=== PATIENT | female | born 2000 | race African-American/Black ===

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

== ENCOUNTER 2022-08-26 19:25 | Emergency (ER) | payer SELFPAY ==
[2022-08-26 19:34] VITALS: BP 109/75; PULSE 90; RESP 18; TEMP 98.5; BMI 35.4
[2022-08-26] MEDS ORDERED: DIPHTH,PERTUSS(ACELL),TET 0.5 ML DISP.SYRIN IM ONE ×2 (20:09→20:16)
[2022-08-26] MEDS ORDERED: ACETAMINOPHEN 500 MG TABLET (FP) PO ONE (20:09)
[2022-08-26] MEDS ORDERED: ACETAMINOPHEN 500 MG TABLET (FP) ONE (20:16)
== END 2022-08-26 22:56 | disposition home or self-care (01) ==
LOC: JER 19:25 → JERFT 19:25
PROC: 0HQLXZZ Repair Left Lower Leg Skin, External Approach (ICD-10-PCS; principal; 2022-08-26)
PROC: 3E0234Z Introduction of Serum, Toxoid and Vaccine into Muscle, Percutaneous Approach (ICD-10-PCS; 2022-08-26)
DX: S81.812A Laceration without foreign body, left lower leg, initial encounter (principal); Y99.9 Unspecified external cause status
CPT/HCPCS: 84703; 90715; 99284-25

== ENCOUNTER 2023-07-26 08:43 | Emergency (ER) | payer OTHER ==
[2023-07-26 08:50] VITALS: BP 116/53; PULSE 98; RESP 18; TEMP 98.2; BMI 35.4
[2023-07-26 10:26] LABS: BASO % 0.3 % (0-2.0); EOS % 1.4 % (0-4.5); HEMATOCRIT 37.9 % (32.4-45.2); HEMOGLOBIN 12.7 GM/dL (10.7-15.3); LYMPH % 15.9 % (8-40); MCH 29.4 pg (25.7-33.7); MCHC 33.7 g/dl (32.0-36.0); MEAN CELL VOLUME 87.4 fl (80-96); MEAN PLT VOLUME 8.1 fl (7.5-11.1); MONO % 5.7 % (3.8-10.2); NEUT % 76.7 % (42.8-82.8); PLATELET COUNT 256 10^3/uL (134-434); RBC 4.33 M/mm3 (3.60-5.2); RDW 13.4 % (11.6-15.6); WHITE BLOOD COUNT 12.5 K/mm3 (4.0-10.0)
[2023-07-26 10:31] LABS: INR 0.99 (0.83-1.09); PROTHROMBIN TIME (PATIENT) 11.5 SEC (9.7-13.0)
[2023-07-26 10:32] LABS: EPI CELLS 17 /uL (0-25.1); HYALINE CASTS 0 /uL (0-3.1); URINE APPEARANCE CLOUDY; URINE BACTERIA 532 /uL (0-1359); URINE BILIRUBIN NEGATIVE (NEGATIVE); URINE COLOR YELLOW; URINE GLUCOSE (UA) NEGATIVE (NEGATIVE); URINE KETONE NEGATIVE (NEGATIVE); URINE LEUK ESTERASE 3+ (NEGATIVE); URINE NITRITE NEGATIVE (NEGATIVE); URINE PROTEIN 1+ (NEGATIVE); URINE RBC 215 /uL (0-23.9); URINE UROBILINOGEN 0.2 mg/dL (0.2-1.0); URINE WBC 1410 /uL (0-25.8)
[2023-07-26 10:34] LABS: ACTIVATED PTT 28.7 SECONDS (25.2-36.5)
[2023-07-26 10:42] LABS: POTASSIUM 4.5 mmol/L (3.5-5.1)
[2023-07-26 10:44] LABS: CALCIUM 8.9 mg/dL (8.5-10.1)
[2023-07-26 10:45] LABS: BLOOD UREA NITROGEN 6.4 mg/dL (7-18)
[2023-07-26 10:48] LABS: CREATININE 0.7 mg/dL (0.55-1.3)
[2023-07-26 10:50] LABS: BILIRUBIN,TOTAL 0.4 mg/dL (0.2-1); TOT PROT 6.7 g/dl (6.4-8.2)
[2023-07-26] MEDS ORDERED: CEPHALEXIN MONOHYDRATE 500 MG CAPSULE (UD) ONE (12:16)
[2023-07-26] MEDS: CEPHALEXIN MONOHYDRATE 500 MG CAPSULE (UD) PO ONE (12:27)
[2023-07-26] MEDS ORDERED: CEPHALEXIN MONOHYDRATE 500 MG CAPSULE (UD) PO ONE (13:16)
== END 2023-07-26 14:05 | disposition home or self-care (01) ==
LOC: JER 08:43
DX: O20.8 Other hemorrhage in early pregnancy (principal); O26.891 Other specified pregnancy related conditions, first trimester; R10.30 Lower abdominal pain, unspecified; O23.11 Infections of bladder in pregnancy, first trimester; Z3A.09 9 weeks gestation of pregnancy
CPT/HCPCS: 36415; 76801-TC; 80053; 81003; 84702; 84703; 85025; 85610; 85730; 86850; 86900; 86901; 87086; 87186; 99284-25

== ENCOUNTER 2023-12-10 14:34 | Emergency (ER) | payer OTHER ==
[2023-12-10 14:44] VITALS: PULSE 100; BMI 40.9
[2023-12-10] MEDS ORDERED: ACETAMINOPHEN 325 MG TABLET (FP) ONE (15:35)
[2023-12-10] MEDS: ACETAMINOPHEN 325 MG TABLET (FP) PO ONE (15:37)
[2023-12-10 16:50] VITALS: RESP 20; TEMP 98.2
[2023-12-10 16:51] VITALS: BP 114/63
== END 2023-12-10 17:59 | disposition home or self-care (01) ==
LOC: JER 14:34
DX: O9A.213 Injury, poisoning and certain other consequences of external causes complicating pregnancy, third trimester (principal); S39.012A Strain of muscle, fascia and tendon of lower back, initial encounter; Z3A.28 28 weeks gestation of pregnancy; W01.0XXA Fall on same level from slipping, tripping and stumbling without subsequent striking against object, initial encounter; Y93.01 Activity, walking, marching and hiking
CPT/HCPCS: 76815; 76819-TC; 99284-25

== ENCOUNTER 2024-03-03 10:19 | Inpatient (IN) | payer OTHER ==
[2024-03-03] MEDS: ELECTROLYTE-148 SOLN 1,000 ML IV SCH (13:10)
[2024-03-03 13:13] LABS: BASO % 0.4 % (0-2.0); EOS % 1.1 % (0-4.5); HEMATOCRIT 35.4 % (32.4-45.2); HEMOGLOBIN 11.5 GM/dL (10.7-15.3); LYMPH % 22.2 % (8-40); MCHC 32.5 g/dl (32.0-36.0); MEAN CELL VOLUME 80.1 fl (80-96); MEAN PLT VOLUME 8.6 fl (7.5-11.1); MONO % 6.6 % (3.8-10.2); NEUT % 69.7 % (42.8-82.8); PLATELET COUNT 249 10^3/uL (134-434); RBC 4.42 M/mm3 (3.60-5.2); RDW 14.9 % (11.6-15.6); WHITE BLOOD COUNT 9.8 K/mm3 (4.0-10.0)
[2024-03-03 13:20] LABS: INR 0.9 (0.83-1.09); PROTHROMBIN TIME (PATIENT) 10.4 SEC (9.7-13.0)
[2024-03-03 13:23] LABS: ACTIVATED PTT 29.3 SECONDS (25.2-36.5)
[2024-03-03] MEDS ORDERED: OXYTOCIN 30 UNITS in 0.9% NS 30 UNIT/500 ML INFUS.BAG IVPB ONE (13:30)
[2024-03-03] MEDS: OXYTOCIN 30 UNITS in 0.9% NS 30 UNIT/500 ML INFUS.BAG IVPB SCH (13:35)
[2024-03-03 13:47] LABS: POTASSIUM 4.3 mmol/L (3.5-5.1)
[2024-03-03 13:50] LABS: ALBUMIN 2.6 g/dl (3.4-5.0); CALCIUM 9.1 mg/dL (8.5-10.1)
[2024-03-03 13:51] LABS: BLOOD UREA NITROGEN 5.6 mg/dL (7-18)
[2024-03-03 13:54] LABS: CREATININE 0.6 mg/dL (0.55-1.3)
[2024-03-03 13:56] LABS: BILIRUBIN,TOTAL 0.3 mg/dL (0.2-1); TOT PROT 6.3 g/dl (6.4-8.2)
[2024-03-03 13:56] LABS: COCAINE, UR NEGATIVE (NEGATIVE); METHADONE, UR NEGATIVE (NEGATIVE); OPIATES, URI NEGATIVE (NEGATIVE); URINE AMPHETAMINES NEGATIVE (NEGATIVE); URINE BARBITURATES NEGATIVE (NEGATIVE); URINE BENZODIAZEPINES NEGATIVE (NEGATIVE)
[2024-03-03 13:57] LABS: PHENCYCLIDINE,URINE NEGATIVE (NEGATIVE)
[2024-03-03 14:02] LABS: SYPHILIS W/ RPR CONF NON-REACTIVE (NONREACTIVE)
[2024-03-03 14:31] LABS: HIV INTERPRETATION NEGATIVE (NEGATIVE)
[2024-03-03 14:35] VITALS: BMI 36.6
[2024-03-03] MEDS ORDERED: AMPICILLIN SODIUM 2 GM VIAL ONE (15:29)
[2024-03-03] MEDS ORDERED: PROMETHAZINE HCL 25 MG/1 ML VIAL ONE (15:29)
[2024-03-03] MEDS ORDERED: BUTORPHANOL TARTRATE 2 MG/ML VIAL ONE (15:29)
[2024-03-03] MEDS: PROMETHAZINE HCL 25 MG/1 ML VIAL IVPB ONE (15:40)
[2024-03-03] MEDS: BUTORPHANOL TARTRATE 1 MG/ML VIAL IVPB PRN (15:40)
[2024-03-03] MEDS: AMPICILLIN - 2 GM in SODIUM CHLORIDE 100 ML IVPB ONE (16:15)
[2024-03-03] MEDS ORDERED: AMPICILLIN SODIUM 1 GM VIAL ONE ×2 (19:20→23:13)
[2024-03-03] MEDS: AMPICILLIN - 1 GM in SODIUM CHLORIDE 100 ML IVPB SCH (19:24)
[2024-03-03] MEDS ORDERED: ELECTROLYTE-148 SOLN 500 ML IV ONE (23:55)
[2024-03-04] MEDS: CITRIC ACID/SODIUM CITRATE 30 ML UNIT-DOSE CUP PO ONE
[2024-03-04] MEDS ORDERED: morphine SULFATE/PF 1 MG/2 ML (2cc Syringe - QUVA) ONE (00:09)
[2024-03-04] MEDS ORDERED: FENTANYL CITRATE/PF 50 MCG/ML VIAL ONE (00:09)
[2024-03-04] MEDS ORDERED: ceFAZolin SODIUM 1 GM VIAL ONE (00:09)
[2024-03-04] MEDS ORDERED: METHYLERGONOVINE MALEATE 0.2 MG/1 ML AMP IM PRN (00:11)
[2024-03-04] MEDS ORDERED: IBUPROFEN 800 MG/8 ML IJ IVPB PRN (00:11)
[2024-03-04] MEDS ORDERED: METOCLOPRAMIDE HCL INJECTION 10 MG/2 ML VIAL ONE (00:13)
[2024-03-04] MEDS ORDERED: ONDANSETRON 4 MG/2 ML VIAL ONE (00:13)
[2024-03-04] MEDS ORDERED: OXYTOCIN 10 UNITS/ML VIAL ONE (00:13)
[2024-03-04] MEDS ORDERED: KETOROLAC TROMETHAMINE 30 MG/1 ML VIAL ONE (00:13)
[2024-03-04] MEDS ORDERED: DEXAMETHASONE SOD PHOSPHATE 4 MG/1 ML VIAL ONE (00:13)
[2024-03-04] MEDS ORDERED: AZITHROMYCIN IVPB 500 MG/250 ML BAG IVPB ONE (00:26)
[2024-03-04] MEDS ORDERED: TRANEXAMIC ACID 1000 MG/10 ML VIAL ONE (00:38)
[2024-03-04] MEDS ORDERED: ELECTROLYTE-148 SOLN 1,000 ML IV SCH (00:55)
[2024-03-04 00:57] LABS: CORD HCO3 22.6 mmHg (20-29); CORD PCO2 62.5 mmHg (30-78); CORD pH 7.177 (7.14-7.44)
[2024-03-04 01:08] LABS: CORD HCO3 21.6 mmHg (20-29); CORD PCO2 51.3 mmHg (30-78); CORD pH 7.242 (7.14-7.44)
[2024-03-04] MEDS ORDERED: OXYTOCIN 20 UNITS in 0.9% NS 20 UNIT/1,000 ML INFUS.BAG IV ONE (02:24)
[2024-03-04] MEDS: OXYTOCIN 20 UNITS in 0.9% NS 20 UNIT/1,000 ML INFUS.BAG IV SCH (02:45)
[2024-03-04] MEDS ORDERED: oxyCODONE HCL 5 MG TABLET PO PRN ×2 (12:12)
[2024-03-04] MEDS: PRENATAL VITAMINS W/ FOLIC ACID TABLET (FP) PO SCH (12:52)
[2024-03-04] MEDS: FERROUS SO4 325 MG TABLET (FP) PO SCH (12:52)
[2024-03-04] MEDS: SIMETHICONE 80 MG TAB.CHEW (FP) PO PRN (17:08)
[2024-03-04] MEDS: IBUPROFEN 600 MG TABLET (FP) PO PRN (17:08)
[2024-03-04] MEDS: ACETAMINOPHEN 325 MG TABLET (FP) PO PRN (20:01)
[2024-03-05] MEDS ORDERED: BISACODYL 10 MG SUPP.RECT RC PRN (00:12)
[2024-03-05 08:33] LABS: BASO % 0.3 % (0-2.0); EOS % 1.7 % (0-4.5); HEMATOCRIT 27.2 % (32.4-45.2); HEMOGLOBIN 8.7 GM/dL (10.7-15.3); LYMPH % 19.5 % (8-40); MEAN CELL VOLUME 81.4 fl (80-96); MEAN PLT VOLUME 8.6 fl (7.5-11.1); NEUT % 71.5 % (42.8-82.8); PLATELET COUNT 208 10^3/uL (134-434); RBC 3.34 M/mm3 (3.60-5.2); RDW 14.9 % (11.6-15.6); WHITE BLOOD COUNT 11.5 K/mm3 (4.0-10.0)
[2024-03-05 14:17] VITALS: RESP 18
[2024-03-05] MEDS: PANTOPRAZOLE 40 MG TABLET PO SCH (20:52)
[2024-03-05 21:17] LABS: BASO % 0.5 % (0-2.0); EOS % 1.7 % (0-4.5); HEMOGLOBIN 8.9 GM/dL (10.7-15.3); LYMPH % 20.5 % (8-40); MCH 25.8 pg (25.7-33.7); MCHC 31.6 g/dl (32.0-36.0); MEAN CELL VOLUME 81.6 fl (80-96); MEAN PLT VOLUME 8.6 fl (7.5-11.1); MONO % 6.7 % (3.8-10.2); NEUT % 70.6 % (42.8-82.8); PLATELET COUNT 229 10^3/uL (134-434); RBC 3.43 M/mm3 (3.60-5.2); WHITE BLOOD COUNT 12.1 K/mm3 (4.0-10.0)
[2024-03-06 07:33] LABS: BASO % 0.4 % (0-2.0); EOS % 1.9 % (0-4.5); HEMATOCRIT 27.9 % (32.4-45.2); HEMOGLOBIN 9.1 GM/dL (10.7-15.3); LYMPH % 17.2 % (8-40); MCH 26.6 pg (25.7-33.7); MCHC 32.8 g/dl (32.0-36.0); MEAN CELL VOLUME 81.1 fl (80-96); MEAN PLT VOLUME 8.5 fl (7.5-11.1); MONO % 6.4 % (3.8-10.2); NEUT % 74.1 % (42.8-82.8); PLATELET COUNT 228 10^3/uL (134-434); RBC 3.44 M/mm3 (3.60-5.2); RDW 14.9 % (11.6-15.6); WHITE BLOOD COUNT 10.9 K/mm3 (4.0-10.0)
[2024-03-06] MEDS ORDERED: ALBUTEROL SO4 HFA INHALER IH PRN (11:08)
[2024-03-06 12:18] LABS: RETICULOCYTES 2.85 % (0.5-1.5)
[2024-03-06] MEDS: ASCORBIC ACID 500 MG TABLET (FP) PO SCH (21:54)
[2024-03-06] MEDS: ZOLPIDEM TARTRATE 5 MG TABLET PO PRN (21:54)
[2024-03-07 09:58] LABS: BASO % 0.4 % (0-2.0); HEMATOCRIT 29.3 % (32.4-45.2); HEMOGLOBIN 9.4 GM/dL (10.7-15.3); LYMPH % 19.2 % (8-40); MCH 26.5 pg (25.7-33.7); MCHC 32.2 g/dl (32.0-36.0); MEAN CELL VOLUME 82.2 fl (80-96); MEAN PLT VOLUME 8.3 fl (7.5-11.1); MONO % 4.8 % (3.8-10.2); NEUT % 72.6 % (42.8-82.8); PLATELET COUNT 263 10^3/uL (134-434); RBC 3.57 M/mm3 (3.60-5.2); RDW 14.9 % (11.6-15.6); WHITE BLOOD COUNT 9.5 K/mm3 (4.0-10.0)
[2024-03-07 10:37] VITALS: BP 117/67; PULSE 88; TEMP 98.1
[2024-03-07 12:05] LABS: POTASSIUM 3.9 mmol/L (3.5-5.1)
[2024-03-07 12:08] LABS: BLOOD UREA NITROGEN 7.8 mg/dL (7-18); CALCIUM 8.6 mg/dL (8.5-10.1)
[2024-03-07 12:11] LABS: CREATININE 0.7 mg/dL (0.55-1.3)
== END 2024-03-07 15:30 | disposition home or self-care (01) | DRG 540 ==
LOC: JDEL 10:19 → JLDR 12:20 → J3W 03-04 04:15
PROVIDERS: ADMIT Obstetrics & Gynecology; ATTEND Obstetrics & Gynecology
PROC: 10D00Z1 Extraction of Products of Conception, Low, Open Approach (ICD-10-PCS; principal; 2024-03-04)
DX: O48.0 Post-term pregnancy (principal); Z3A.42 42 weeks gestation of pregnancy; O41.03X0 Oligohydramnios, third trimester, not applicable or unspecified; D62 Acute posthemorrhagic anemia; O99.213 Obesity complicating pregnancy, third trimester; O99.02 Anemia complicating childbirth; O62.1 Secondary uterine inertia; O36.8330 Maternal care for abnormalities of the fetal heart rate or rhythm, third trimester, not applicable or unspecified; O99.820 Streptococcus B carrier state complicating pregnancy; J95.89 Other postprocedural complications and disorders of respiratory system, not elsewhere classified; J98.11 Atelectasis; O26.893 Other specified pregnancy related conditions, third trimester; Z37.0 Single live birth
CPT/HCPCS: 36415; 36600; 80048; 80053; 80307; 82803; 85025; 85045; 85610; 85730; 86780; 86803; 86850; 86900; 86901; 87340; 87389; 88307-TC